=== PATIENT | male | born 1940 | race Caucasian/White ===

== ENCOUNTER 2018-03-03 15:38 | Inpatient (IN) | payer MEDICARE, OTHER, SELFPAY ==
[2018-03-03] VITALS (8 sets, daily range): BP systolic 123–161; BP diastolic 83–93; PULSE 88–122; RESP 16–24; TEMP 36.4–37.1; O2SAT 93–99; BMI 35.3; BMI 33.5
--- NOTE | 2018-03-03 16:11 | CT_ITS ---
STUDY: CT BRAIN WITHOUT CONTRAST REASON FOR EXAM: Male, 77 years old. History of multiple recent falls RADIATION DOSAGE (If Supplied By Facility): CTDIvol = ( ) mGy, DLP = ( ) mGycm TECHNIQUE: Transaxial CT imaging of the brain was performed without administration of intravenous contrast material. Individualized dose optimization techniques were used for this CT. COMPARISON: None. FINDINGS: Normal soft tissue structures. Normal calvarium. There is mild cerebral atrophy with widening of the extra-axial spaces and ventricular dilatation. There are areas of decreased attenuation within the white matter tracts of the supratentorial brain, consistent with microvascular disease changes. Normal basal ganglia and thalami. Normal brainstem. There is mild cerebellar atrophy. There is no intracranial hemorrhage. There are no findings of an acute ischemic infarction. There is mucosal thickening of the inferior left maxillary sinus. CT/Brain/Head without Contrast IMPRESSION: Chronic involutional changes of the brain. Mucosal thickening of the inferior left maxillary sinus. There is no intracranial hemorrhage or evidence of acute infarct. Electronically Signed: Mohan Zafar MD at 17:39 EDT , Service support ,
--- NOTE | 2018-03-03 16:12 | EKG12_ITS ---
Test Reason : FALL Blood Pressure : / mmHG Vent. Rate : 092 BPM Atrial Rate : 104 BPM P-R Int : 000 ms QRS Dur : 088 ms QT Int : 350 ms P-R-T Axes : 000 -11 069 degrees QTc Int : 432 ms Atrial fibrillation Abnormal ECG Confirmed by KEIRY MASON, VIDAL ([id number]), editor continuity and script YULIET FLAHERTY ([id number]) on 03/05/2018 2:30:05 PM Referred By: ALICIA/SNOW Confirmed By:VIDAL RICCI MD
--- NOTE | 2018-03-03 16:13 | RAD_ITS ---
STUDY: X-RAY - PELVIS AND LEFT HIP REASON FOR EXAM: Male, 77 years old. History of multiple falls, confusion TECHNIQUE: Radiological exam, hip, unilateral, with pelvis when performed; 2 or 3 views. COMPARISON: None. FINDINGS: There is a non-specific bowel gas pattern. Normal visualized soft tissue structures. Normal bilateral iliac wings, sacroiliac joints and visualized sacrum. Normal bilateral superior and inferior pubic rami. Normal pubic symphysis. Normal bilateral ischial tuberosities. There is a linear lucency of the base of the lesser trochanter raising the suspicion of nondisplaced hairline fracture. RAD/Hip 2-3 Views with Pelvis IMPRESSION: Linear lucency of the base of the lesser trochanter raising the suspicion of nondisplaced hairline fracture. If clinically indicated, CT the pelvis without contrast would be helpful for further evaluation. Electronically Signed: Mohan Zafar MD at 17:45 EDT , Service support ,
--- NOTE | 2018-03-03 16:13 | CT_ITS ---
STUDY: CT CERVICAL SPINE WITHOUT CONTRAST REASON FOR EXAM: Male, 77 years old. Multiple falls RADIATION DOSAGE (If Supplied By Facility): CTDIvol = ( ) mGy, DLP = ( ) mGycm TECHNIQUE: High resolution transaxial imaging was performed without contrast material. Sagittal and coronal images were reconstructed. Individualized dose optimization techniques were used for this CT. COMPARISON: None FINDINGS: Normal craniovertebral junction. There are degenerative changes of the anterior atlantoaxial articulation. Normal odontoid process. Normal cervical lordosis. There is mild endplate spondylosis of C3-C7. C2-3: Normal endplates. Normal disc height and morphology. Normal central canal and intervertebral neuroforamina. C3-4: There are bilateral hypertrophic degenerative facet changes. There is severe disc space narrowing. There is moderate foraminal narrowing on the left. There is no central canal stenosis. C4-5: There are bilateral degenerative facet changes. There is severe disc space narrowing with sclerosis of the adjacent endplates. There is moderately severe bilateral foraminal narrowing. There is mild central canal stenosis. C5-6: There is severe disc space narrowing. There is severe bilateral foraminal narrowing and mild central canal stenosis. There are bilateral hypertrophic degenerative facet changes. There is a 3 mm anterolisthesis of C6 relative to C5. C6-7: Disc spacing is within normal limits. There are mild bilateral degenerative facet changes. There is no central canal or foraminal stenosis. C7-T1: Normal endplates. Normal disc height and morphology. Normal central canal and intervertebral neuroforamina. Normal visualized soft tissue structures. CT/Spine Cervical without Contras IMPRESSION: Multilevel degenerative changes, as described above. 3 mm anterior subluxation of C6 relative to C5 most likely on a degenerative basis. Electronically Signed: Mohan Zafar MD at 17:34 EDT , Service support ,
--- NOTE | 2018-03-03 16:13 | CT_ITS ---
STUDY: CT FACIAL BONES WITHOUT CONTRAST REASON FOR EXAM: Male, 77 years old. Trauma RADIATION DOSAGE (If Supplied By Facility): CTDIvol = ( ) mGy, DLP = ( 3175.30 ) mGycm TECHNIQUE: The patient was scanned in a multi detector CT scanner. Sagittal and coronal images were reconstructed. Individualized dose optimization techniques were used for this CT. COMPARISON: None. FINDINGS: The study is limited secondary to motion artifact. Normal soft tissue structures. Normal orbital sánchez and orbital contents. Normal nasal bones and anterior nasal spine. Normal facial bones. There is no demonstrated fracture. The remnants of several maxillary bicuspid/incisors appear to be loosened. There are degenerative changes of the TMJs, left side more severely affected than right. There is mild mucosal thickening of the left maxillary sinus. The structures of the nasal cavity appear intact. CT/Sinus/Facial Bone IMPRESSION: There appear to be several loosened carious bicuspids/incisors of the maxilla. There are degenerative changes of the TMJs. Electronically Signed: Mohan Zafar MD at 17:25 EDT , Service support ,
--- NOTE | 2018-03-03 16:13 | CT_ITS ---
STUDY: CT LUMBAR SPINE WITHOUT CONTRAST REASON FOR EXAM: Male, 77 years old. History of multiple falls recently, confusion RADIATION DOSAGE (If Supplied By Facility): CTDIvol = ( ) mGy, DLP = ( 2829.07 ) mGycm TECHNIQUE: The patient was scanned in a multi detector CT scanner. High resolution transaxial imaging was performed. Images were obtained from T11 to sacrum. Sagittal and coronal images were reconstructed. Individualized dose optimization techniques were used for this CT. COMPARISON: None FINDINGS: There is straightening of the normal lumbar lordosis. There is a mild levoscoliosis. The study is limited due to patient obesity scanning artifact and motion artifact. The patient was apparently uncooperative during the study. L1-2: There is moderately severe disc space narrowing with vacuum phenomenon. There is a nondisplaced fracture of the right L1 lamina which is of indeterminate age. There is severe central canal stenosis caused by bulging annulus and hypertrophic facet changes. There is no foraminal narrowing. L2-3: There is loss of the L2-3 disc space. There are bilateral hypertrophic degenerative facet changes and circumferentially bulging annulus. There is severe central canal stenosis. There is mild foraminal narrowing on the right. L3-4: There is moderately severe disc space narrowing. There is a nondisplaced fracture of the left L3 lamina. There is severe central canal stenosis caused by hypertrophic facet changes and bulging annulus. There is mild bilateral foraminal narrowing. L4-5: There are mild bilateral degenerative facet changes. There is severe central canal stenosis caused by bulging annulus and degenerative facet changes. There is moderate foraminal narrowing on the right. There is severe disc space narrowing with vacuum phenomenon. L5-S1: Disc spacing is preserved. There are mild bilateral degenerative facet changes. There is no central canal stenosis or foraminal narrowing. There is right lower lobe atelectasis and/or infiltrate. CT/Spine Lumbar without Contrast IMPRESSION: Degenerative changes as detailed above. Nondisplaced fractures of the right L1 lamina and left L3 lamina, which are of indeterminate age. Electronically Signed: Mohan Zafar MD at 17:14 EDT , Service support ,
--- NOTE | 2018-03-03 16:15 | ED.VISSUMM ---
- ER Visit Summary Date of Service: 03/03/18 Chief Complaint: Fall, confusion History of Present Illness: The patient is a 77 M here with family evaluation of multiple falls and increasing confusion. Initial fall 3 weeks ago facial injury family did not get evaluated. He is on Xarelto. Yesterday had another fall, he was seen at [facility]. Family states was there with his daughter who is currently not here. Reported he signed out AMA. States he was home, had 2 additional falls this morning trying to get out of bed. His unwitnessed. He states he had facial injury. States he is more confused. Denies history of dementia. Patient complains of lower back and left hip pain. Does not ambulate with assistance. At home with his spouse. Past medical history: Coronary disease, CHF, hypertension, hypercholesterolemia, atrial fibrillation. Denies [place] history. Physical Examination: General: Alert and oriented ?3, no acute distress HEENT: Normocephalic, healing ecchymosis around the left eye. No abrasion across the bridge of the nose. No nasal bleeding, no septal hematoma. Moist mucosa membranes Neck: supple, nontender. Cardiovascular: Irregular tachycardic Rate and rhythm, no murmurs Respiratory: Normal breath sounds, symmetric, no distress Back: Left paralumbar tenderness. No midline tenderness Abdomen: Soft, nontender, nondistended Extremities: Nontender, no edema, pulses intact ?4. Negative logroll bilaterally. No shortening or deformities. Neuro: no focal neurological deficits. Test Results: EKG: Rate controlled A. fib, rate of 92, no ST or T-wave changes. CT head neck and face: No fractures, no intracranial process. CT lumbar spine: Nondisplaced right L1 lamina fracture, nondisplaced left L3 lamina fracture. Left hip and pelvis: Linear lunar density lesser trochanteric. Chest x-ray negative. WBC 13.2. Creatinine 1.09. INR 1.5 PTT 29.5. UA pending. Troponin negative. Emergency Department Course and Treatment: Patient no distress, alert and oriented ?3. Patient on Xarelto with recurrent falls with head injuries. Image studies head neck and face shows no intracranial process degenerative changes of the neck. CT lumbar spine no nondisplaced fractures of the lamina at L1 and L3. Hip x-ray notes potential fracture lesser trochanteric, nonweightbearing region. He did not require any pain medications. Labs are stable slight white count 13.2. Urine is pending. Family present concerns with multiple falls will need admission for multiple falls and failure to thrive. I did speak with covering orthopedist, Dr. Braun, fractures are nonsurgical, will follow as a consult inpatient. Patient A. fib is rate controlled on Xarelto. I discussed with hospitalist, Dr. Rogers, who will evaluate for admission. Treatment Plan: [] Disposition: Admission Impression: 1. Multiple falls 2. L1 L3 lumbar fracture 3. Lesser trochanteric fracture closed 4. Failure to thrive 5. Chronic A. fib This note was generated with [employer] dictation software. It may contain incorrect words, spelling, and punctuation that were not noted in review of the chart prior to signing ED Disposition - Plan for ED Patient: Disposition: Acute Care Hospital [facility] Chief Complaint: Fall Diagnosis: Falls, Failure to thrive, L1 and L3 fracture, Closed fracture of lesser trochanter of left femur, Chronic atrial fibrillation Referrals: Jesse Edge MD [Primary Care Provider] -
--- NOTE | 2018-03-03 16:19 | ED.DCSUM_ITS ---
- ER Visit Summary Date of Service: 03/03/18 Chief Complaint: Fall, confusion History of Present Illness: The patient is a 77 M here with family evaluation of multiple falls and increasing confusion. Initial fall 3 weeks ago facial injury family did not get evaluated. He is on Xarelto. Yesterday had another fall, he was seen at [facility]. Family states was there with his daughter who is currently not here. Reported he signed out AMA. States he was home, had 2 additional falls this morning trying to get out of bed. His unwitnessed. He states he had facial injury. States he is more confused. Denies history of dementia. Patient complains of lower back and left hip pain. Does not ambulate with assistance. At home with his spouse. Past medical history: Coronary disease, CHF, hypertension, hypercholesterolemia, atrial fibrillation. Denies [place] history. Physical Examination: General: Alert and oriented ?3, no acute distress HEENT: Normocephalic, healing ecchymosis around the left eye. No abrasion across the bridge of the nose. No nasal bleeding, no septal hematoma. Moist mucosa membranes Neck: supple, nontender. Cardiovascular: Irregular tachycardic Rate and rhythm, no murmurs Respiratory: Normal breath sounds, symmetric, no distress Back: Left paralumbar tenderness. No midline tenderness Abdomen: Soft, nontender, nondistended Extremities: Nontender, no edema, pulses intact ?4. Negative logroll bilaterally. No shortening or deformities. Neuro: no focal neurological deficits. Test Results: EKG: Rate controlled A. fib, rate of 92, no ST or T-wave changes. CT head neck and face: No fractures, no intracranial process. CT lumbar spine : Nondisplaced right L1 lamina fracture, nondisplaced left L3 lamina fracture. Left hip and pelvis: Linear lunar density lesser trochanteric. Chest x-ray negative. WBC 13.2. Creatinine 1.09. INR 1.5 PTT 29.5. UA pending. Troponin negative. Emergency Department Course and Treatment: Patient no distress, alert and oriented ?3. Patient on Xarelto with recurrent falls with head injuries. Image studies head neck and face shows no intracranial process degenerative changes of the neck. CT lumbar spine no nondisplaced fractures of the lamina at L1 and L3. Hip x-ray notes potential fracture lesser trochanteric, nonweightbearing region. He did not require any pain medications. Labs are stable slight white count 13.2. Urine is pending. Family present concerns with multiple falls will need admission for multiple falls and failure to thrive. I did speak with covering orthopedist, Dr. Braun, fractures are nonsurgical, will follow as a consult inpatient. Patient A. fib is rate controlled on Xarelto. I discussed with hospitalist, Dr. Rogers, who will evaluate for admission. Treatment Plan: [] Disposition: Admission Impression: 1. Multiple falls 2. L1 L3 lumbar fracture 3. Lesser trochanteric fracture closed 4. Failure to thrive 5. Chronic A. fib This note was generated with [employer] dictation software. It may contain incorrect words, spelling, and punctuation that were not noted in review of the chart prior to signing ED Disposition - Plan for ED Patient: Disposition: Acute Care Hospital [facility] Chief Complaint: Fall Diagnosis: Falls, Failure to thrive, L1 and L3 fracture, Closed fracture of lesser trochanter of left femur, Chronic atrial fibrillation Referrals: Jesse Edge MD [Primary Care Provider] -
[2018-03-03 16:36] LABS: Hematocrit 34.8 % (40-54); Hemoglobin 11.7 g/dl (13.0-16.5); Mean Corp Hgb Conc 33.6 g/gl (32-36); Mean Corpuscular Volume 92.1 fL (80-94); Monocyte% 6.3 % (0-10); Platelet Count 304 K/mm3 (150-450); RBC Distribution Width CV 13.7 % (11.6-14.6); RBC Distribution Width SD 44.4 fl (35.1-43.9); Red Blood Count 3.78 M/mm3 (4.6-6.2); White Blood Count 13.2 K/mm3 (4.4-11.0)
[2018-03-03 16:37] LABS: Absolute Lymphocyte Count 0.63 X10^3/ul (0.83-4.51); Absolute Neutrophil Count 11.7 X10^3/uL (2.0-7.7); Lymphocyte # 0.63 X10^3/ul (4.0); Lymphocyte % 4.8 % (19-41); Mean Platelet Vol. 9.5 fl (6.2-12.0); Monocyte# 0.84 X10^3/uL; Neutrophil # 11.71 X10^3/uL (2.7-7.7); Neutrophil % 88.5 % (47-70); POSITIVE COUNT NO; POSITIVE DIFFERENTIAL NO; POSITIVE MORPHOLOGY NO
--- NOTE | 2018-03-03 16:37 | RAD_ITS ---
STUDY: X-RAY CHEST REASON FOR EXAM: Male, 77 years old. Confusion, history of multiple falls TECHNIQUE: Single AP portable view of the chest. COMPARISON: None. FINDINGS: site monitor leads are present. The lungs are clear and expanded. There is no demonstrated pleural abnormality. There is borderline cardiomegaly. Status post sternotomy changes are present. Normal mediastinum and gabbie. Normal visualized pulmonary arteries. Normal visualized aortic arch and descending thoracic aorta. Normal visualized thoracic spine. Normal visualized ribs, clavicles, and shoulders. There is no demonstrated abnormality of the visualized soft tissue structures of the upper abdomen. RAD/Chest 1 View (Portable) IMPRESSION: Borderline heart size. Status post sternotomy. No acute cardiopulmonary disease process is seen. Electronically Signed: Mohan Zafar MD at 17:40 EDT , Service support ,
[2018-03-03 16:45] LABS: ALB/GLOB Ratio 1.1 RATIO (0.9-2.4); AST(SGOT) 26 U/L (15-37); Alanine Aminotransfer ALT/SGPT 23 U/L (16-61); Albumin, Serum 3.6 g/dL (3.2-5.0); Alkaline Phosphatase 78 U/L (45-117); Anion Gap 11 (5-15); BUN 32 mg/dL (7-18); BUN/Creat Ratio 29.4 RATIO (10-20); Chloride 104 mmol/L (98-107); Creatinine, Serum 1.09 mg/dL (0.70-1.30); EST Glomerular Filtration Rate 69 mL/min (>60); Est Glom Filt Rate - Afr Amer 84 mL/min (>60); Estimated Creatinine Clearance 49.59 ml/min; Globulin 3.4 g/dL (2.2-4.2); Glucose 205 mg/dL (74-106); Potassium 4.6 mmol/L (3.5-5.1); Sodium Level 138 mmol/L (136-145)
[2018-03-03] MEDS: 0.9% Normal Saline 1,000 ML 150 ML IV (17:22)
[2018-03-03 18:01] LABS: International Normalized Ratio 1.5; Partial Thromboplast Time 29.2 Seconds (24.1-36.2); Prothrombin Time (Protime)PT. 17.7 SECONDS (11.7-14.9)
--- NOTE | 2018-03-03 18:38 | ED.RN ---
pt with yellow bruising noted on left side of face. pt has fallen three times in the last three days. bruising to left hip and back. pt unable to give clean catch at this time, will continue to monitor. pt to be admitted. family at bedside.
--- NOTE | 2018-03-03 18:55 | PCM.HP.STD ---
Problem List (1) Hyperlipidemia Status: Chronic (2) Hypertension Status: Chronic (3) Status post coronary artery bypass graft Status: Chronic (4) Closed fracture of lesser trochanter of left femur Status: Acute (5) Chronic atrial fibrillation Status: Chronic History of Present Illness Date of Admission: 03/03/18 Chief Complaint: Frequent falls, confusion. The patient is a 77 year old M with past medical history as mentioned above presented to the medicine because of fall and confusion. At this time, patient is very frustrated and upset because he is being admitted. Initially, he refused even to speak with me. When I asked him about complaints, he complained of left hip pain. He will not give me any details about that pain. His family were at the bedside and he was very argumentative with them about the admission. Reportedly, patient has been having frequent falls, had a fall 2 weeks ago with facial injury and he did not seek medical attention. He had another fall yesterday and he was seen at the outside facility and reportedly, he signed out AMA from the facility. Today at home, he had 2 falls that was unwitnessed. His daughter mentioned that he has been more confused than usual and forgetful. At this time, he is alert and related ?3. He had a history of CAD status post CABG and he has been on aspirin, statins, beta blockers, losartan. He has a history of chronic atrial fibrillation and he has been on metoprolol for rate control and Xarelto for anticoagulation. He has a history of hypertension which seemed to be under control with Norvasc and metoprolol as well as losartan. In the emergency department, his blood pressure was slightly elevated, other vitals are stable. His routine blood work was remarkable for mild leukocytosis, hemoglobin of 11.7 g/dL, blood sugar is 207 without history of diabetes. His pro time is 17.7 and INR 1.5. EKG revealed atrial suppression, controlled, no acute ischemic changes. Troponin is negative. Chest x-ray showed mild cardiomegaly, no acute findings. CT scan brain showed no acute hemorrhage or infarction. CT scan cervical spine without contrast revealed 3 mm anterior subluxation of C5 and C6 due to degenerative changes, no acute fractures or dislocations. X-ray of the pelvis and left hip revealed questionable hairline lesser trochanter fracture. CT lumbar spine revealed nondisplaced fracture of right L1 lamina and left L3 lamina of indeterminate age. He is being admitted for frequent falls, debility, suspected left lesser trochanter fracture, right L1 lamina and left L3 lamina fracture of indeterminate age. Past Medical History Past Medical History (Chronic Problems): Chronic Problems Hyperlipidemia (Chronic) Hypertension (Chronic) Status post coronary artery bypass graft (Chronic) Coronary artery disease (Chronic) Chronic atrial fibrillation (Chronic) Allergies No Known Allergies Allergy (Verified 03/03/18 15:39) Home Medications: Ambulatory Orders Medication Instructions Recorded Amlodipine Besylate [Norvasc] 5 mg PO DAILY 03/03/18 Aspirin [Aspirin, Baby] 81 mg PO DAILY@0800 03/03/18 Atorvastatin Calcium [Lipitor] 10 mg PO QHS 03/03/18 Cyclobenzaprine [Flexeril] 10 mg PO TID 03/03/18 Duloxetine HCl 30 mg PO DAILY 03/03/18 Furosemide [Lasix] 20 mg PO DAILY 03/03/18 Hydrocodone/Acetaminophen 1 each PO TID PRN PRN 03/03/18 [Hydrocodon-Acetaminophen 5-325] Losartan Potassium 100 mg PO DAILY 03/03/18 Metoprolol Succinate 25 mg PO DAILY 03/03/18 Oxycodone [Oxyir] 5 mg PO Q6H PRN PRN 03/03/18 Rivaroxaban [Xarelto] 20 mg PO DAILY 03/03/18 Surgical History: cholecystectomy, coronary bypass surgery Psychiatric History: No pertinent psych hx Lives: Spouse/ Significant Other Smoking Status: Former smoker Alcohol: None Drugs: None - *Family History Maternal History Items: No pertinent history Paternal History Items: No pertinent history Review of Systems Constitutional: Denies: Anorexia, Chills, Fever, Weakness Eyes: Denies: Blurred vision, Double vision, Drainage, Redness HEENT: Denies: Difficulty Hearing, Ear Pain, Eye Pain, Nasal Congestion, Sore Throat Cardiovascular: Denies: Chest Pain, Chest Pressure, Heaviness, Palpitations, Syncope Respiratory: Denies: Cough, Pleuritic Pain, Shortness of Breath, Sputum production, Wheezing Gastrointestinal: Denies: Abdominal Pain, Diarrhea, Nausea, Vomiting Genitourinary: Denies: Dysuria, Frequency, Hematuria Musculoskeletal: Reports: Joint Pain. Denies: Arm Pain, Back Pain Skin: Denies: Dryness, Rash Neurological: Denies: Balance problems, Double vision, Change in Speech, Numbness Psychiatric: Denies: Anxiety, Depression Endocrine: Denies: Change in Body Habitus, Polydipsia VTE Information - Inpt Only VTE Present on Admission: No VTE Mechan Device Prophylaxis: SCD's VTE Pharm Prophylaxis ordered?: No Patient Problems: Active and Suspected Problems Failure to thrive (Acute) Falls (Acute) Closed fracture of lesser trochanter of left femur (Acute) - Physical Exam General: Alert, Oriented x3, Cooperative, No apparent distress HEENT: PERRLA, EOMI, Normocephalic, - - Head distorted, bruises under left eye and above left eyebrow. Oral: Moist Mucosa, No Gingival or Mucosal Lesions/ Ulcerations Neck: Supple, No JVD, Negative Carotid Bruits, Trachea Midline, Thyroid Normal Size and Texture Lungs: Clear to auscultation, No rhonchi, No wheeze, No rales, Diminished Cardiovascular: Normal S1, Normal S2, No murmurs, PMI Normal, Irregular Rate Abdomen: Bowel Sounds Present, Soft, Non Tender, Non-Distended, No Hepato-splenomegaly Extremities: No clubbing, No cyanosis, Edema - Nonpitting edema. Skin: No rashes, No breakdown Lymphatic: No Cervical, Supraclavicular, or Inguinal Adenopathy Neurological: Cranial nerves II-XII grossly intact, Motor Exam 5/5 strength throughout Psych/Mental Status: Agitated, Anxious Vital Signs Temp Pulse Resp BP Pulse Ox 97.8 F 101 H 24 H 156/92 H 94 03/03/18 15:39 03/03/18 18:08 03/03/18 18:08 03/03/18 18:08 03/03/18 18:08 Oxygen Flow Rate (L/min) 97 Oxygen Delivery Method Room Air Weight: 218 lb 11.177 oz Body Mass Index (BMI) 35.3 Laboratory Tests Past 24 Hrs 03/03/18 03/03/18 03/03/18 15:40 16:08 16:08 WBC 13.2 H RBC 3.78 L Hgb 11.7 L Hct 34.8 L MCV 92.1 MCH 31.0 MCHC 33.6 RDW 13.7 RDW Differential 44.4 H Plt Count 304 MPV 9.5 Immature Gran % (Auto) 0.400 Neut % (Auto) 88.5 H Lymph % (Auto) 4.8 L [place] % (Auto) 6.3 Eos % (Auto) 0.0 Baso % (Auto) 0.0 Absolute Neuts (auto) 11.7 H Absolute Lymphs (auto) 0.63 L Total Counted Not Reportable PT 17.7 H INR 1.5 APTT 29.2 Sodium 138 Potassium 4.6 Chloride 104 Carbon Dioxide 23.0 Anion Gap 11 BUN 32 H Creatinine 1.09 Estim Creat Clear Calc 49.59 Est GFR (MDRD) Af Amer 84 Est GFR (MDRD) Non-Af 69 BUN/Creatinine Ratio 29.4 H Glucose 205 H Calcium 9.0 Total Bilirubin 1.10 H AST 26 ALT 23 Alkaline Phosphatase 78 Troponin I < 0.015 Total Protein 7.0 Albumin 3.6 Globulin 3.4 Albumin/Globulin Ratio 1.1 Clinical Impression(s) from Imaging Studies Brain CT 03/03/18 16:11 IMPRESSION: Chronic involutional changes of the brain. Mucosal thickening of the inferior left maxillary sinus. There is no intracranial hemorrhage or evidence of acute infarct. Electronically Signed: Mohan Zafar MD at 17:39 EDT , Service support , Cervical Spine CT 03/03/18 16:13 IMPRESSION: Multilevel degenerative changes, as described above. 3 mm anterior subluxation of C6 relative to C5 most likely on a degenerative basis. Electronically Signed: Mohan Zafar MD at 17:34 EDT , Service support , Facial/Sinus 03/03/18 16:13 IMPRESSION: There appear to be several loosened carious bicuspids/incisors of the maxilla. There are degenerative changes of the TMJs. Electronically Signed: Mohan Zafar MD at 17:25 EDT , Service support , Hip/Pelvis X-Ray 03/03/18 16:13 IMPRESSION: Linear lucency of the base of the lesser trochanter raising the suspicion of nondisplaced hairline fracture. If clinically indicated, CT the pelvis without contrast would be helpful for further evaluation. Electronically Signed: Mohan Zafar MD at 17:45 EDT , Service support , Lumbar Spine CT 03/03/18 16:13 IMPRESSION: Degenerative changes as detailed above. Nondisplaced fractures of the right L1 lamina and left L3 lamina, which are of indeterminate age. Electronically Signed: Mhoan Zafar MD at 17:14 EDT , Service support , Chest X-Ray 03/03/18 16:37 IMPRESSION: Borderline heart size. Status post sternotomy. No acute cardiopulmonary disease process is seen. Electronically Signed: Mohan Zafar MD at 17:40 EDT , Service support , Assessment/Plan All Active Problems Failure to thrive (Acute) Falls (Acute) Closed fracture of lesser trochanter of left femur (Acute) This is a 77 years old male patient presented to the emergency room because of frequent falls over the last few days, most recent today with recent history of facial injury, found to have suspected hairline fracture of the left lesser trochanter and nondisplaced fractures of right L1 lamina and L3 lamina of indeterminate age. #1 frequent falls/facial injury/functional decline: Patient has been having frequent falls at home, seen at outside facility for the same reason and he signed AMA. Family is very concerned. Patient is very argumentative. His only complaint is mild left hip pain. He has no back pain. He is alert and oriented ?3. Routine blood work was remarkable for mild leukocytosis, otherwise normal. CT scan brain without acute findings. Vital signs are stable. Plan: Admit to MedSur floor, cardiac monitoring, complete bedrest, IV morphine as needed for pain, OxyIR as needed for pain, repeat CBC and BMP tomorrow morning, IV fluids, PT OT evaluation and treatment, case management consult for placement to care home facility. #2 suspected hairline fracture of the left lesser trochanter: X-ray of the pelvis and left hip reviewed. Patient complained of left hip pain. Plan: IV morphine as needed for pain, OxyIR plan for pain, complete bedrest, CT scan left hip. #3 nondisplaced fracture of right L1 and left L3 lamina of indeterminate age: He has no back pain. He mentioned that he has been having this pain intermittently for long time but at this time. No leg focal weakness, numbness and thickening. Plan for pain control, PT OT. #4 CAD status post CABG: Stable, no acute issues. Continue aspirin, statins, losartan and metoprolol. #5 chronic atrial fibrillation: Rate is controlled, continue metoprolol for rate control, hold Xarelto at this time because patient may go for surgery. INR is 1.5. #6 hypertension: Blood pressure stable, continue Norvasc, metoprolol and losartan. #7 hyperlipidemia: Continue statins. #8 DVT prophylaxis: SCDs. Hold Xarelto, patient may go for surgery. INR is 1.5. This note was generated with [employer] dictation software. It may contain incorrect words, spelling, and punctuation that were not noted in checking the note before signing. Code Visit Inpatient E&M: 63984 Init Hosp L3
--- NOTE | 2018-03-03 18:59 | HP.PCM_ITS ---
Problem List (1) Hyperlipidemia Status: Chronic (2) Hypertension Status: Chronic (3) Status post coronary artery bypass graft Status: Chronic (4) Closed fracture of lesser trochanter of left femur Status: Acute (5) Chronic atrial fibrillation Status: Chronic History of Present Illness Date of Admission: 03/03/18 Chief Complaint: Frequent falls, confusion. The patient is a 77 year old M with past medical history as mentioned above presented to the medicine because of fall and confusion. At this time, patient is very frustrated and upset because he is being admitted. Initially, he refused even to speak with me. When I asked him about complaints, he complained of left hip pain. He will not give me any details about that pain. His family were at the bedside and he was very argumentative with them about the admission. Reportedly, patient has been having frequent falls, had a fall 2 weeks ago with facial injury and he did not seek medical attention. He had another fall yesterday and he was seen at the outside facility and reportedly, he signed out AMA from the facility. Today at home, he had 2 falls that was unwitnessed. His daughter mentioned that he has been more confused than usual and forgetful. At this time, he is alert and related ?3. He had a history of CAD status post CABG and he has been on aspirin, statins, beta blockers, losartan. He has a history of chronic atrial fibrillation and he has been on metoprolol for rate control and Xarelto for anticoagulation. He has a history of hypertension which seemed to be under control with Norvasc and metoprolol as well as losartan. In the emergency department, his blood pressure was slightly elevated, other vitals are stable. His routine blood work was remarkable for mild leukocytosis, hemoglobin of 11.7 g/dL, blood sugar is 207 without history of diabetes. His pro time is 17.7 and INR 1.5. EKG revealed atrial suppression , controlled, no acute ischemic changes. Troponin is negative. Chest x-ray showed mild cardiomegaly, no acute findings. CT scan brain showed no acute hemorrhage or infarction. CT scan cervical spine without contrast revealed 3 mm anterior subluxation of C5 and C6 due to degenerative changes, no acute fractures or dislocations. X-ray of the pelvis and left hip revealed questionable hairline lesser trochanter fracture. CT lumbar spine revealed nondisplaced fracture of right L1 lamina and left L3 lamina of indeterminate age. He is being admitted for frequent falls, debility, suspected left lesser trochanter fracture, right L1 lamina and left L3 lamina fracture of indeterminate age. Past Medical History Past Medical History (Chronic Problems): Chronic Problems Hyperlipidemia (Chronic) Hypertension (Chronic) Status post coronary artery bypass graft (Chronic) Coronary artery disease (Chronic) Chronic atrial fibrillation (Chronic) Allergies No Known Allergies Allergy (Verified 03/03/18 15:39) Home Medications: Ambulatory Orders Medication Instructions Recorded Amlodipine Besylate [Norvasc] 5 mg PO DAILY 03/03/18 Aspirin [Aspirin, Baby] 81 mg PO DAILY@0800 03/03/18 Atorvastatin Calcium [Lipitor] 10 mg PO QHS 03/03/18 Cyclobenzaprine [Flexeril] 10 mg PO TID 03/03/18 Duloxetine HCl 30 mg PO DAILY 03/03/18 Furosemide [Lasix] 20 mg PO DAILY 03/03/18 Hydrocodone/Acetaminophen 1 each PO TID PRN PRN 03/03/18 [Hydrocodon-Acetaminophen 5-325] Losartan Potassium 100 mg PO DAILY 03/03/18 Metoprolol Succinate 25 mg PO DAILY 03/03/18 Oxycodone [Oxyir] 5 mg PO Q6H PRN PRN 03/03/18 Rivaroxaban [Xarelto] 20 mg PO DAILY 03/03/18 Surgical History: cholecystectomy, coronary bypass surgery Psychiatric History: No pertinent psych hx Lives: Spouse/ Significant Other Smoking Status: Former smoker Alcohol: None Drugs: None - *Family History Maternal History Items: No pertinent history Paternal History Items: No pertinent history Review of Systems Constitutional: Denies: Anorexia, Chills, Fever, Weakness Eyes: Denies: Blurred vision, Double vision, Drainage, Redness HEENT: Denies: Difficulty Hearing, Ear Pain, Eye Pain, Nasal Congestion, Sore Throat Cardiovascular: Denies: Chest Pain, Chest Pressure, Heaviness, Palpitations, Syncope Respiratory: Denies: Cough, Pleuritic Pain, Shortness of Breath, Sputum production, Wheezing Gastrointestinal: Denies: Abdominal Pain, Diarrhea, Nausea, Vomiting Genitourinary: Denies: Dysuria, Frequency, Hematuria Musculoskeletal: Reports: Joint Pain. Denies: Arm Pain, Back Pain Skin: Denies: Dryness, Rash Neurological: Denies: Balance problems, Double vision, Change in Speech, Numbness Psychiatric: Denies: Anxiety, Depression Endocrine: Denies: Change in Body Habitus, Polydipsia VTE Information - Inpt Only VTE Present on Admission: No VTE Mechan Device Prophylaxis: SCD's VTE Pharm Prophylaxis ordered?: No Patient Problems: Active and Suspected Problems Failure to thrive (Acute) Falls (Acute) Closed fracture of lesser trochanter of left femur (Acute) - Physical Exam General: Alert, Oriented x3, Cooperative, No apparent distress HEENT: PERRLA, EOMI, Normocephalic, - - Head distorted, bruises under left eye and above left eyebrow. Oral: Moist Mucosa, No Gingival or Mucosal Lesions/ Ulcerations Neck: Supple, No JVD, Negative Carotid Bruits, Trachea Midline, Thyroid Normal Size and Texture Lungs: Clear to auscultation, No rhonchi, No wheeze, No rales, Diminished Cardiovascular: Normal S1, Normal S2, No murmurs, PMI Normal, Irregular Rate Abdomen: Bowel Sounds Present, Soft, Non Tender, Non-Distended, No Hepato- splenomegaly Extremities: No clubbing, No cyanosis, Edema - Nonpitting edema. Skin: No rashes, No breakdown Lymphatic: No Cervical, Supraclavicular, or Inguinal Adenopathy Neurological: Cranial nerves II-XII grossly intact, Motor Exam 5/5 strength throughout Psych/Mental Status: Agitated, Anxious Vital Signs Temp Pulse Resp BP Pulse Ox 97.8 F 101 H 24 H 156/92 H 94 03/03/18 15:39 03/03/18 18:08 03/03/18 18:08 03/03/18 18:08 03/03/18 18:08 Oxygen Flow Rate (L/min) 97 Oxygen Delivery Method Room Air Weight: 218 lb 11.177 oz Body Mass Index (BMI) 35.3 Laboratory Tests Past 24 Hrs 03/03/18 03/03/18 03/03/18 15:40 16:08 16:08 WBC 13.2 H RBC 3.78 L Hgb 11.7 L Hct 34.8 L MCV 92.1 MCH 31.0 MCHC 33.6 RDW 13.7 RDW Differential 44.4 H Plt Count 304 MPV 9.5 Immature Gran % (Auto) 0.400 Neut % (Auto) 88.5 H Lymph % (Auto) 4.8 L [place] % (Auto) 6.3 Eos % (Auto) 0.0 Baso % (Auto) 0.0 Absolute Neuts (auto) 11.7 H Absolute Lymphs (auto) 0.63 L Total Counted Not Reportable PT 17.7 H INR 1.5 APTT 29.2 Sodium 138 Potassium 4.6 Chloride 104 Carbon Dioxide 23.0 Anion Gap 11 BUN 32 H Creatinine 1.09 Estim Creat Clear Calc 49.59 Est GFR (MDRD) Af Amer 84 Est GFR (MDRD) Non-Af 69 BUN/Creatinine Ratio 29.4 H Glucose 205 H Calcium 9.0 Total Bilirubin 1.10 H AST 26 ALT 23 Alkaline Phosphatase 78 Troponin I < 0.015 Total Protein 7.0 Albumin 3.6 Globulin 3.4 Albumin/Globulin Ratio 1.1 Clinical Impression(s) from Imaging Studies Brain CT 03/03/18 16:11 IMPRESSION: Chronic involutional changes of the brain. Mucosal thickening of the inferior left maxillary sinus. There is no intracranial hemorrhage or evidence of acute infarct. Electronically Signed: Mohan Zafar MD at 17:39 EDT , Service support , Cervical Spine CT 03/03/18 16:13 IMPRESSION: Multilevel degenerative changes, as described above. 3 mm anterior subluxation of C6 relative to C5 most likely on a degenerative basis. Electronically Signed: Mohan Zafar MD at 17:34 EDT , Service support , Facial/Sinus 03/03/18 16:13 IMPRESSION: There appear to be several loosened carious bicuspids/incisors of the maxilla. There are degenerative changes of the TMJs. Electronically Signed: Mohan Zafar MD at 17:25 EDT , Service support , Hip/Pelvis X-Ray 03/03/18 16:13 IMPRESSION: Linear lucency of the base of the lesser trochanter raising the suspicion of nondisplaced hairline fracture. If clinically indicated, CT the pelvis without contrast would be helpful for further evaluation. Electronically Signed: Mohan Zafar MD at 17:45 EDT , Service support , Lumbar Spine CT 03/03/18 16:13 IMPRESSION: Degenerative changes as detailed above. Nondisplaced fractures of the right L1 lamina and left L3 lamina, which are of indeterminate age. Electronically Signed: Mohan Zafar MD at 17:14 EDT , Service support , Chest X-Ray 03/03/18 16:37 IMPRESSION: Borderline heart size. Status post sternotomy. No acute cardiopulmonary disease process is seen. Electronically Signed: Mohan Zafar MD at 17:40 EDT , Service support , Assessment/Plan All Active Problems Failure to thrive (Acute) Falls (Acute) Closed fracture of lesser trochanter of left femur (Acute) This is a 77 years old male patient presented to the emergency room because of frequent falls over the last few days, most recent today with recent history of facial injury, found to have suspected hairline fracture of the left lesser trochanter and nondisplaced fractures of right L1 lamina and L3 lamina of indeterminate age. #1 frequent falls/facial injury/functional decline: Patient has been having frequent falls at home, seen at outside facility for the same reason and he signed AMA. Family is very concerned. Patient is very argumentative. His only complaint is mild left hip pain. He has no back pain. He is alert and oriented ?3. Routine blood work was remarkable for mild leukocytosis, otherwise normal. CT scan brain without acute findings. Vital signs are stable. Plan: Admit to MedSur floor, cardiac monitoring, complete bedrest, IV morphine as needed for pain, OxyIR as needed for pain, repeat CBC and BMP tomorrow morning, IV fluids, PT OT evaluation and treatment, case management consult for placement to [facility] facility. #2 suspected hairline fracture of the left lesser trochanter: X-ray of the pelvis and left hip reviewed. Patient complained of left hip pain. Plan: IV morphine as needed for pain, OxyIR plan for pain, complete bedrest, CT scan left hip. #3 nondisplaced fracture of right L1 and left L3 lamina of indeterminate age: He has no back pain. He mentioned that he has been having this pain intermittently for long time but at this time. No leg focal weakness, numbness and thickening. Plan for pain control, PT OT. #4 CAD status post CABG: Stable, no acute issues. Continue aspirin, statins, losartan and metoprolol. #5 chronic atrial fibrillation: Rate is controlled, continue metoprolol for rate control, hold Xarelto at this time because patient may go for surgery. INR is 1.5. #6 hypertension: Blood pressure stable, continue Norvasc, metoprolol and losartan. #7 hyperlipidemia: Continue statins. #8 DVT prophylaxis: SCDs. Hold Xarelto, patient may go for surgery. INR is 1.5. This note was generated with [employer] dictation software. It may contain incorrect words, spelling, and punctuation that were not noted in checking the note before signing. Code Visit Inpatient E&M: 90395 Init Hosp L3
--- NOTE | 2018-03-03 19:16 | CT_ITS ---
STUDY: CT PELVIS WITHOUT CONTRAST REASON FOR EXAM: Male, 77 years old. Abnormal left hip x-ray RADIATION DOSAGE (If Supplied By Facility): CTDIvol = ( 40.30 ) mGy, DLP = ( 2899.92 ) mGycm TECHNIQUE: Transaxial imaging of the pelvis was performed with oral contrast, and without intravenous administration of contrast material. Individualized dose optimization techniques were used for this CT. COMPARISON: None. FINDINGS: The study is limited secondary to motion artifact. Normal urinary bladder. Normal visualized small intestine. There are scattered colonic diverticuli with no evidence of associated diverticulitis. There is no pelvic fluid. There is no pelvic mass lesion or lymphadenopathy. The prostate, seminal vesicles, and seminal vesicle angles appear normal. Normal visualized pelvic arteries. Normal abdominal wall. There are degenerative changes of the visualized lower lumbar spine. There is no evidence of fracture of the bony pelvis, left or right hips, or visualized proximal femurs. The left femoral lesser trochanter appears intact. CT/Pelvis without IV Contrast IMPRESSION: Degenerative changes of the visualized lower lumbar spine. There is no evidence of fracture or dislocation. Scattered colonic diverticuli with no evidence of associated diverticulitis. Electronically Signed: Mohan Zafar MD at 21:06 EDT , Service support ,
[2018-03-03] MEDS: LORazepam 2 MG/ML Syringe IV (19:58)
[2018-03-03] MEDS: 0.9% Normal Saline 1,000 ML 75 ML IV (21:19)
[2018-03-04] VITALS (13 sets, daily range): BP systolic 119–134; BP diastolic 60–68; PULSE 85–138; RESP 16–20; TEMP 36.3–36.9; O2SAT 94–97
[2018-03-04] MEDS: Haloperidol Lactate 5 MG/ML Vial 2 MG IV (04:09)
--- NOTE | 2018-03-04 07:39 | NURSING ---
This RN tried to attempt VS this AM. Two attempts were made unsuccessfully to take BP. Pt pulled BP cuff off.
[2018-03-04 07:59] LABS: Absolute Lymphocyte Count 1.95 X10^3/ul (0.83-4.51); Basophil# 0.01 X10^3/uL; Basophil% 0.1 % (0-1); Differential Indicated SCAN CRITERIA MET; Hemoglobin 10.8 g/dl (13.0-16.5); Lymphocyte # 1.95 X10^3/ul (4.0); Lymphocyte % 12.5 % (19-41); Mean Corp Hgb Conc 32.7 g/gl (32-36); Mean Corpuscular Hgb 30.4 pg (27.0-32.0); Monocyte# 0.68 X10^3/uL; Monocyte% 4.3 % (0-10); POSITIVE COUNT NO; POSITIVE DIFFERENTIAL NO; POSITIVE MORPHOLOGY YES; Platelet Count 255 K/mm3 (150-450); RBC Distribution Width CV 14.1 % (11.6-14.6); RBC Distribution Width SD 47.5 fl (35.1-43.9); Red Blood Count 3.55 M/mm3 (4.6-6.2); White Blood Count 15.7 K/mm3 (4.4-11.0)
[2018-03-04 08:00] LABS: Anion Gap 11 (5-15); BUN 29 mg/dL (7-18); BUN/Creat Ratio 34.7 RATIO (10-20); Calcium,Total 8.6 mg/dL (8.5-10.1); Chloride 110 mmol/L (98-107); Creatinine, Serum 0.84 mg/dL (0.70-1.30); EST Glomerular Filtration Rate 94 mL/min (>60); Est Glom Filt Rate - Afr Amer 114 mL/min (>60); Estimated Creatinine Clearance 66.67 ml/min; Glucose 134 mg/dL (74-106); Potassium 4.4 mmol/L (3.5-5.1); Sodium Level 144 mmol/L (136-145)
--- NOTE | 2018-03-04 09:33 | VDLE_ITS ---
Reason For Study: swelling RIGHT LEFT CFV is compressible, spontaneous, phasic, GSV is normal. competent and demonstrates normal CFV is compressible, spontaneous, phasic, augmentation. competent, and demonstrates normal FV is compressible, spontaneous, phasic, augmentation. competent and demonstrates normal FV is compressible, spontaneous, phasic, augmentation. competent and demonstrates normal POP V is compressible, spontaneous, phasic, augmentation. competent and demonstrates normal POP V is compressible, spontaneous, phasic, augmentation. competent and demonstrates normal T/P Trunk is compressible. augmentation. PTV is compressible. T/P Trunk is compressible. RT PerV is compressible. PTV is compressible. GSV appears to be harvested. LT PerV is compressible. Procedure Exam performed portable in patient room. The exam was of fair technical quality due to pt movement. A preliminary report was called and/or faxed to the pt's RN and the Hospitalist. Interpretation Summary No evidence for acute deep venous thrombosis bilateral lower extremities. Surgically removed right great saphenous vein Patent and compressible left great saphenous vein. Ordering Physician: Kemi Hernandes Performed By: Watson Stephen RVT
--- NOTE | 2018-03-04 11:06 | NURSING ---
Patient refusing all AM medications and breakfast.
--- NOTE | 2018-03-04 11:09 | PCM.PN.ORT ---
Patient Problems: Active and Suspected Problems Failure to thrive (Acute) Falls (Acute) Closed fracture of lesser trochanter of left femur (Acute) Subjective: ORTHOPEDIC CONSULT Pt. has had multiple falls over the last several weeks. Is a very poor historian. Reports LBP, but denies significant LLE pain or N/T/P. PMHX, PSHx, ROS, Family Hx, Meds and allergies reviewed per the intake H&P. - Physical Exam General: Alert, Cooperative, No apparent distress Extremities: Edema, Peripheral Pulses Normal, Tenderness - b/l LE with eccchymosis about the Left leg. Able to raise legs without much pian. Logroll negative bilaterally Neurological: Sensory exam intact to light touch and pain Psych/Mental Status: Restless Comment: All imaging studies reviewed Vital Signs Temp Pulse Resp BP Pulse Ox 98.4 F 98 18 134/60 H 94 03/04/18 08:15 03/04/18 11:05 03/04/18 08:15 03/04/18 11:05 03/04/18 08:15 Oxygen Delivery Method Room Air Weight: 214 lb 1.102 oz Body Mass Index (BMI) 33.5 Intake and Output for Last 24 Hours 03/02/18 03/03/18 03/04/18 23:59 23:59 23:59 Intake Total 237 / 237 230 / 230 Output Total 0 / 0 Balance 237 / 237 230 / 230 Laboratory Tests Past 24 Hrs 03/04/18 03/04/18 07:15 07:15 WBC 15.7 H RBC 3.55 L Hgb 10.8 L Hct 33.0 L MCV 93.0 MCH 30.4 MCHC 32.7 RDW 14.1 RDW Differential 47.5 H Plt Count 255 MPV 9.0 Immature Gran % (Auto) 0.100 Neut % (Auto) 83.0 H Lymph % (Auto) 12.5 L [place] % (Auto) 4.3 Eos % (Auto) 0.0 Baso % (Auto) 0.1 Absolute Neuts (auto) 13.0 H Absolute Lymphs (auto) 1.95 Total Counted Not Reportable Sodium 144 Potassium 4.4 Chloride 110 H Carbon Dioxide 23.0 Anion Gap 11 BUN 29 H Creatinine 0.84 Estim Creat Clear Calc 66.67 Est GFR (MDRD) Af Amer 114 Est GFR (MDRD) Non-Af 94 BUN/Creatinine Ratio 34.7 H Glucose 134 H Calcium 8.6 Medical Necessity - Tobacco Use Smoking Status: Former smoker Tobacco Use: Cigars Assessment/Plan All Active Problems Failure to thrive (Acute) Falls (Acute) Closed fracture of lesser trochanter of left femur (Acute) L1 and L3 lamina fxs without neurologic impingement or deficit Left lesser trochanter fx PT with WBAT All Injuries nonsurgical Will follow in office upon discharge
--- NOTE | 2018-03-04 12:18 | PCM.PN.HOSP ---
Patient Problems: Active and Suspected Problems Failure to thrive (Acute) Falls (Acute) Closed fracture of lesser trochanter of left femur (Acute) Subjective: Patient seen and examined. He was admitted yesterday with frequent falls and confusion. He was given 2mg Ativan and a dose of haldol. He denies any pain although his left lower leg is swollen and has posterior bruises. He initially was sleepy in the morning. The nursing staff were concerned about a possible stroke. NIHSS was 7. Patient was alert, oriented x3, oriented to year, season, time. He easily falls back to sleep. I was called back to the room 15 mins later because patient was threatening to sign out AMA. Objective: Physical Exam General: Alert, Oriented x3, Cooperative, No apparent distress HEENT: Bruises under left eye and above left eyebrow. Oral: Moist Mucosa, No Gingival or Mucosal Lesions/ Ulcerations Neck: Supple, No JVD Lungs: Clear to auscultation, No rhonchi, No wheeze, No rales, Diminished Cardiovascular: Normal S1, Normal S2, No murmurs, PMI Normal, Irregular Rate Abdomen: Bruises over his left flank and posterior lumbosacral region, Bowel Sounds Present, Soft, Non Tender, Non-Distended, No Hepato-splenomegaly Extremities: Bilateral leg edema, worse in the left lower leg, +2 pitting edema with posterior skin bruises which appear to be in various stages of healing Skin: No rashes, No breakdown Lymphatic: No Cervical, Supraclavicular, or Inguinal Adenopathy Neurological: Cranial nerves II-XII grossly intact, Motor Exam 5/5 strength throughout Psych/Mental Status: Agitated, Anxious Vitals/I&O's: Vital Signs Temp Pulse Resp BP Pulse Ox 98.4 F 95 18 134/60 H 94 03/04/18 08:15 03/04/18 11:10 03/04/18 08:15 03/04/18 11:05 03/04/18 08:15 Oxygen Delivery Method Room Air Weight: 97.1 kg Body Mass Index (BMI) 33.5 Intake and Output for Last 24 Hours 03/02/18 03/03/18 03/04/18 23:59 23:59 23:59 Intake Total 237 / 237 230 / 230 Output Total 0 / 0 Balance 237 / 237 230 / 230 Laboratory Results 03/04/18 07:15: WBC 15.7 H, RBC 3.55 L, Hgb 10.8 L, Hct 33.0 L, MCV 93.0, MCH 30.4, MCHC 32.7, RDW 14.1, RDW Differential 47.5 H, Plt Count 255, MPV 9.0, Immature Gran % (Auto) 0.100, Neut % (Auto) 83.0 H, Lymph % (Auto) 12.5 L, [place] % (Auto) 4.3, Eos % (Auto) 0.0, Baso % (Auto) 0.1, Absolute Neuts (auto) 13.0 H, Absolute Lymphs (auto) 1.95, Total Counted Not Reportable 03/04/18 07:15: Sodium 144, Potassium 4.4, Chloride 110 H, Carbon Dioxide 23.0, Anion Gap 11, BUN 29 H, Creatinine 0.84, Estim Creat Clear Calc 66.67, Est GFR (MDRD) Af Amer 114, Est GFR (MDRD) Non-Af 94, BUN/Creatinine Ratio 34.7 H, Glucose 134 H, Calcium 8.6 Current Medications Amlodipine Besylate (Norvasc) 5 mg PO DAILY [facility] Last Admin: 03/04/18 11:05 Dose: Not Given Aspirin (Aspirin, Baby) 81 mg PO DAILY@0800 [facility] Last Admin: 03/04/18 11:05 Dose: Not Given Atorvastatin Calcium (Lipitor) 10 mg PO QHS [facility] Last Admin: 03/03/18 23:53 Dose: Not Given Cyclobenzaprine HCl (Flexeril) 10 mg PO TID [facility] Last Admin: 03/04/18 05:17 Dose: Not Given Docusate Sodium (Colace) 100 mg PO BID [facility] Last Admin: 03/04/18 11:05 Dose: Not Given Duloxetine HCl (Cymbalta) 30 mg PO DAILY [facility] Last Admin: 03/04/18 11:05 Dose: Not Given Sodium Chloride () 1,000 mls @ 75 mls/hr IV .[id number] [facility] Last Admin: 03/03/18 21:19 Dose: 75 mls/hr Sodium Chloride () 250 mls @ 15 mls/hr IV .[id number] PRN PRN Reason: SALINE FLUSH Losartan Potassium (Cozaar) 100 mg PO DAILY [facility] Last Admin: 03/04/18 11:05 Dose: Not Given Magnesium Hydroxide (Milk Of Magnesia) 30 ml PO DAILY PRN PRN PRN Reason: Constipation Metoprolol Succinate (Toprol Xl (Beta Lucy)) 25 mg PO DAILY [facility] Last Admin: 03/04/18 11:05 Dose: Not Given Morphine Sulfate () 1 - 2 mg IV Q4H PRN PRN PRN Reason: SEVERE PAIN (6-10/10) Ondansetron HCl (Zofran) 4 mg IV Q6H PRN PRN PRN Reason: NAUSEA/VOMITING Oxycodone HCl (Oxyir) 5 mg PO Q6H PRN PRN PRN Reason: SEVERE PAIN (6-10/10) Sodium Chloride () 5 - 30 ml IV UD PRN PRN Reason: SALINE FLUSH Medical Necessity - Tobacco Use Smoking Status: Former smoker Tobacco Use: Cigars Assessment/Plan All Active Problems Failure to thrive (Acute) Falls (Acute) Closed fracture of lesser trochanter of left femur (Acute) 77 years old male patient who was admitted with recurrent falls, with recent history of facial injury. He lives at home with his . He was found to have suspected hairline fracture of the left lesser trochanter and nondisplaced fractures of right L1 lamina and L3 lamina of indeterminate age. 1. Debility secondary to frequent falls/facial injury/functional decline, reportedly seen at outside facility for the same reason and he signed AMA. Will get PT/OT to evaluate and assist us with treatment and discharge disposition, care management consulted. 2. Bilateral leg edema, worse in left lower extremity, will get doppler ultrasound stat to rule out DVT. 3. Suspected hairline fracture of the left lesser trochanter, seen on x-ray of the hip and pelvis scan, acute fracture ruled out with CT pelvis. Continue with as needed oxycodone and morphine 4. Nondisplaced fracture of right L1 and left L3 lamina of indeterminate age, denies any pain, no focal neurological deficits, orthopedics consulted, conservative management recommended. 5. Suspected delirium with possible cognitive impairment, his says patient is usually stubborn, patient wants to leave AMA, does not appear to have capacity to make medical decisions now. 6. CAD status post CABG, stable, on aspirin, statins, losartan and metoprolol. 7. Chronic atrial fibrillation, rate controlled, on metoprolol, hold Xarelto. 8.Hypertension, stable, continue on Norvasc, metoprolol and losartan. 9. Hyperlipidemia, on statins. 10. DVT prophylaxis- SCDs, Xarelto on hold Code Visit Inpatient E&M: 43045 Subs Hosp L3
[2018-03-04] MEDS: Metoprolol(XL)Succ 25 MG Tablet PO (14:11)
[2018-03-04] MEDS: DULoxetine Hcl 30 MG Capsule PO (14:11)
[2018-03-04] MEDS: Aspirin 81 MG TAB.CHEW PO (14:11)
[2018-03-04] MEDS: Losartan Potassium 100 MG Tablet PO (14:18)
[2018-03-04] MEDS: amLODIPine 5 MG Tablet PO (14:18)
[2018-03-04] MEDS: 0.9% Normal Saline 1,000 ML 75 ML IV (15:29)
[2018-03-04] MEDS: Haloperidol Lactate 5 MG/ML Vial 4 MG IM (22:52)
--- NOTE | 2018-03-04 23:35 | NURSING ---
Around 23:15, RN tried to replace batteries in pt tele. Pt agitated and refusing batteries to be changed.
[2018-03-05] VITALS (15 sets, daily range): BP systolic 114–141; BP diastolic 68–83; PULSE 80–110; RESP 16–32; TEMP 36.3–36.9; O2SAT 93–96
[2018-03-05] MEDS: Haloperidol Lactate 5 MG/ML Vial 2 MG IM (00:33)
--- NOTE | 2018-03-05 01:24 | NURSING ---
Addendum entered by Teresa Sauceda 03/05/18 01:25: Around 23:30 on 03/04* Original Note: Around 23:30, unable to take pt VS or assess NIHSS because pt is exhibiting hostile behavior while being repositioned in bed. Pt has been given IM Haldol. If pt calms down with the Haldol, an attempt will be made to obtain an NIHSS score and vital signs.
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
[2018-03-05 06:32] LABS: Absolute Lymphocyte Count 0.84 X10^3/ul (0.83-4.51); Absolute Neutrophil Count 9.6 X10^3/uL (2.0-7.7); Basophil# 0.01 X10^3/uL; Basophil% 0.1 % (0-1); Eosinophil# 0.01 X10^3/uL; Eosinophils% 0.1 % (0-5); Hematocrit 32.1 % (40-54); Hemoglobin 10.9 g/dl (13.0-16.5); Lymphocyte # 0.84 X10^3/ul (4.0); Lymphocyte % 7.2 % (19-41); Mean Corpuscular Hgb 31.7 pg (27.0-32.0); Mean Corpuscular Volume 93.3 fL (80-94); Monocyte# 1.26 X10^3/uL; Monocyte% 10.7 % (0-10); Neutrophil # 9.56 X10^3/uL (2.7-7.7); Neutrophil % 81.5 % (47-70); Platelet Count 250 K/mm3 (150-450); RBC Distribution Width CV 13.8 % (11.6-14.6); RBC Distribution Width SD 45.4 fl (35.1-43.9); Red Blood Count 3.44 M/mm3 (4.6-6.2); White Blood Count 11.7 K/mm3 (4.4-11.0)
[2018-03-05 06:33] LABS: POSITIVE COUNT NO; POSITIVE DIFFERENTIAL NO; POSITIVE MORPHOLOGY NO
[2018-03-05 07:01] LABS: Anion Gap 8 (5-15); BUN 27 mg/dL (7-18); BUN/Creat Ratio 33.8 RATIO (10-20); Calcium,Total 8.3 mg/dL (8.5-10.1); Chloride 112 mmol/L (98-107); EST Glomerular Filtration Rate 99 mL/min (>60); Est Glom Filt Rate - Afr Amer 120 mL/min (>60); Glucose 124 mg/dL (74-106); Potassium 3.8 mmol/L (3.5-5.1); Sodium Level 143 mmol/L (136-145)
--- NOTE | 2018-03-05 07:40 | NURSING ---
RN attempted to complete NIHSS around 07:15. Pt had 2 doses of Haldol overnight and is now very lethargic. NIHSS unable to be completed at that time.
--- NOTE | 2018-03-05 08:43 | NURSING ---
Unable to perform NIH on patient at this time. Medication given for anxiety on nightshift. Patient drowsy and unable to follow commands.
--- NOTE | 2018-03-05 10:41 | MRI_ITS ---
STUDY: MRI BRAIN WITHOUT CONTRAST REASON FOR EXAM: Male, 77 years old. CONFUSION, COMBATIVE TECHNIQUE: Standardized multiplanar fat and water weighted pulse sequences were obtained. COMPARISON: CT brain March 03, 2018 FINDINGS: There is mild cerebral atrophy with widening of the extra-axial spaces and ventricular dilatation. Normal white matter tracts of the supratentorial brain. There is no evidence for recent intracranial ischemia or other cause of cytotoxic edema on diffusion weighted imaging (DWI). Normal T2* images of the brain without demonstrated susceptibility artifact. There is no demonstrated hemosiderin stain. Normal bilateral basal ganglia. Normal thalami. The extra-axial subdural spaces appear prominent suggesting chronic subdural hygromas with no mass effect and likely related to the degree of volume loss. Normal flow voids within the major intracranial circulation suggesting patency by spin echo criteria. Normal sella turcica, pituitary gland, infundibular stalk, optic chiasm and hypothalamus. Normal tectal plate and pineal gland. Normal midbrain, dary and medulla. Normal cerebellum. Normal basal cisterns. Normal bilateral temporal bones. Normal bilateral internal auditory canals. No demonstrated orbital abnormality, within the constraints of a routine brain study. Normal visualized paranasal sinuses. Normal calvarium and skull base. Normal visualized soft tissue structures. Normal visualized upper cervical spine. MRI/Brain without Contrast IMPRESSION: Involutional changes of the brain, as described above. Electronically Signed: Rachel Chatterjee MD at 14:15 EDT , Service support ,
--- NOTE | 2018-03-05 10:44 | MRI_ITS ---
STUDY: MRA OF THE HEAD WITHOUT CONTRAST REASON FOR EXAM: Male, 77 years old. CONFUSION, COMBATIVE TECHNIQUE: 3-D [id number] (TOF) imaging was performed with MIPs. The study was performed unenhanced. Technologist Notes Patient could not hold still, MEDICATED, STRAPS USED COMPARISON: MRI of the brain March 05, 2018, CT brain March 03, 2018 FINDINGS: Normal bilateral petrous carotid arteries. Normal right cavernous carotid artery with a normal supraclinoid bifurcation. Normal left cavernous carotid artery with a normal supraclinoid bifurcation. Normal right A1 segments of the anterior cerebral artery. Normal left A1 segments of the anterior cerebral artery. There is non-visualization of the anterior communicating artery (ACOM) there is nonvisualization may relate to patient motion. Normal bilateral A2 segments of the anterior cerebral arteries. Normal right M1 and M2 segments of the middle cerebral arteries, with a normal M1 bifurcation. Normal left M1 and M2 segments of the middle cerebral arteries, with a normal M1 bifurcation. There is non-visualization of the right posterior communicating artery (PCOM). There is non-visualization of the left posterior communicating artery (PCOM). The right vertebral artery is visualized, prominent and ectatic. The left vertebral artery is not visualized and may either be occluded or atretic. Normal basilar artery with a normal basilar bifurcation. The visualized bilateral superior cerebellar (SCA) arteries are normal. Normal bilateral P1, P2 and visualized P3 segments of the posterior cerebral arteries. There is no demonstrated aneurysm of the rampart of [place]. There is no major vessel occlusion or hemodynamically significant stenosis. There is no demonstrated abnormality of the visualized brain. MRI/MRA Head ONLY without Contrast IMPRESSION: Limited study due to motion. The left vertebral artery is not visualized which may be secondary to atresia or occlusion. Otherwise no demonstrated major vascular occlusion. See above. Electronically Signed: Rachel Chatterjee MD at 14:20 EDT , Service support ,
--- NOTE | 2018-03-05 10:45 | ECHOCS_ITS ---
Reason For Study: TIA/CVA Procedure This was a 2D Doppler, Color Flow transthoracic echocardiogram. Contrast injection was performed. The study was technically difficult. Exam performed portable in patient room. Left Ventricle Normal size and thickness. The estimated ejection fraction is 50 %. There are regional wall motion abnormalities as specified. Mid-Anterior : Mildly hypokinetic. Mid-anteroseptal : Mildly hypokinetic. Right Ventricle Normal size and thickness. Normal systolic function. Atria The left atrium is severely enlarged. Normal right atrium. Normal atrial septum. Bubble contrast study negative for right to left interatrial shunt. Mitral Valve The mitral valve is structurally normal. No prolapse or stenosis seen. Trivial mitral valve insufficiency. Tricuspid Valve Normal tricuspid valve. Mild (1+) tricuspid valve insufficiency. Right ventricular systolic pressure estimated to be 44 mmHg. Mild pulmonary hypertension. Aortic Valve Trisinus/trileaflet aortic valve. Mild diffuse aortic valve thickening. Mild aortic stenosis. Trivial aortic valve insufficiency. Pulmonic Valve The pulmonic valve is not well visualized. Great Vessels Normal aortic root. Normal arch. Normal inferior vena cava. Inferior vena cava collapse with sniff. Pericardium/Pleural No pericardial effusion. Medication Diluted definity 6ml given slow IV push to enhance endocardial definition. Performed a rapid injection of agitated mix of 9 cc saline and 1cc air to assess for atrial septal defect. MMode/2D Measurements & Calculations LVIDd: 5.7 cm IVSd: 0.84 cm LVOT diam: 2.1 cm LVIDs: 4.4 cm LVPWd: 0.99 cm LVOT area: 3.5 cm2 FS: 23.5 % LAV(MOD-bp): 109.0 ml Aortic Valve Planimetry: 1.7 cm2 LA A4 area: 33.3 cm2 LAV(MOD-bp) Indexed: 52.4 ml/m2 LAV(MOD-sp2): 83.8 ml LAV(MOD-sp4): 120.8 ml RA A4 area: 20.2 cm2 Doppler Measurements & Calculations MV E max amira: 98.3 cm/sec Ao V2 max: 169.0 cm/sec AI max amira: 287.9 cm/sec Ao max P.5 mmHg AI max P.1 mmHg Ao V2 mean: 120.4 cm/sec AI dec slope: 182.7 cm/sec2 Ao mean P.4 mmHg AI P1/2t: 461.5 msec Ao V2 VTI: 27.4 cm LUDWIG(I,D): 1.9 cm2 LUDWIG(V,D): 1.9 cm2 LV V1 max: 90.9 cm/sec SV(LVOT): 52.1 ml TR max amira: 268.1 cm/sec LV V1 max P.4 mmHg TR max P.8 mmHg LV V1 mean P.9 mmHg LV V1 mean: 64.8 cm/sec LV V1 VTI: 14.9 cm Interpretation Summary The estimated ejection fraction is 50 %. There are regional wall motion abnormalities as specified. The left atrium is severely enlarged. Bubble contrast study negative for right to left interatrial shunt. Trivial mitral valve insufficiency. Mild (1+) tricuspid valve insufficiency. Right ventricular systolic pressure estimated to be 44 mmHg. Mild pulmonary hypertension. Trivial aortic valve insufficiency. Mild aortic stenosis. Pt appears to be in atrial fibrillation. The study was technically difficult. There is no comparison study available. Contrast injection was performed. Ordering Physician: Kemi Hernandes Referring Physician: DEVON GARCIA Performed By: Tosin Smith RDCS, RVT
--- NOTE | 2018-03-05 11:30 | CASEMGMT ---
Social Work: Referral for D/C planning. Physician and therapy staff recommending half-way facility for therapy. Will follow with family. TC to patient's to discuss D/C planning. Patient states that they prefer to take patient home verses SNF placement. Patient's states that daughter and grandson also live in the home and can assist as needed. Patient's states that they have a walker, wheelchair, shower chair and bed side commode in the home already. Patient's agreeable to home health. Will follow to assist as needed for D/C planning. Discussed with Dr. Hernandes. Dr. Hernandes states that patient has been agitated and has received Haldol at night. Dr. Hernandes ordered MRI to assess for physiological reason for behaviors. Dr. Hernandes aware that family would like to take patient home at D/C. Will continue to follow. TC from patient's sister Sonya Deleon (Sonya list on face sheet as blocker and cutter contact lens in addition to ). Sonya states that she spoke with patient's who is now considering SNF placement. Per patient's sister and , patient will most likely not be agreeable to SNF placement. Sonya states she will be in this afternoon to speak with patient about short term SNF placement for therapy. Updated Polly Santiago RN CM. Will follow to assist as needed for D/C planning. PLAN: Home with [facility] verses SNF placement. SARAHI Wick
--- NOTE | 2018-03-05 12:45 | PCM.PN.HOSP ---
Patient Problems: Active and Suspected Problems Failure to thrive (Acute) Falls (Acute) Closed fracture of lesser trochanter of left femur (Acute) Subjective: Patient was seen and examined. He has been agitated the whole night wanting to get up and walk even though he is a high fall risk. He has been reportedly hitting at the nurses. At the time of being examined he is asleep, medicated with Haldol last night and started on Seroquel. Discussed with patient's sister and , no formal diagnosis of dementia but has had some problems with memory. Doppler ultrasound of the lower extremities has been negative for acute DVT. Objective: Physical Exam General: Alert, Oriented x3, Cooperative, No apparent distress HEENT: Bruises under left eye and above left eyebrow. Oral: Moist Mucosa, No Gingival or Mucosal Lesions/ Ulcerations Neck: Supple, No JVD Lungs: Clear to auscultation, No rhonchi, No wheeze, No rales, Diminished Cardiovascular: Normal S1, Normal S2, No murmurs, PMI Normal, Irregular Rate Abdomen: Bruises over his left flank and posterior lumbosacral region, Bowel Sounds Present, Soft, Non Tender, Non-Distended, No Hepato-splenomegaly Extremities: Bilateral leg edema, worse in the left lower leg, +2 pitting edema with posterior skin bruises which appear to be in various stages of healing Skin: No rashes, No breakdown Lymphatic: No Cervical, Supraclavicular, or Inguinal Adenopathy Neurological: Cranial nerves II-XII grossly intact, Motor Exam 5/5 strength throughout Psych/Mental Status: Agitated, Anxious Vitals/I&O's: Vital Signs Temp Pulse Resp BP Pulse Ox 97.4 F L 87 16 126/74 H 95 03/05/18 11:55 03/05/18 11:55 03/05/18 11:55 03/05/18 11:55 03/05/18 11:55 Oxygen Delivery Method Room Air Weight: 97.1 kg Body Mass Index (BMI) 33.5 Intake and Output for Last 24 Hours 03/03/18 03/04/18 03/05/18 23:59 23:59 23:59 Intake Total 237 / 237 1438 / 1438 0 / 0 Output Total 0 / 0 250 / 250 150 / 150 Balance 237 / 237 1188 / 1188 -150 / -150 Laboratory Results 03/05/18 06:20: WBC 11.7 H, RBC 3.44 L, Hgb 10.9 L, Hct 32.1 L, MCV 93.3, MCH 31.7, MCHC 34.0, RDW 13.8, RDW Differential 45.4 H, Plt Count 250, MPV 9.0, Immature Gran % (Auto) 0.400, Neut % (Auto) 81.5 H, Lymph % (Auto) 7.2 L, [place] % (Auto) 10.7 H, Eos % (Auto) 0.1, Baso % (Auto) 0.1, Absolute Neuts (auto) 9.6 H, Absolute Lymphs (auto) 0.84, Total Counted Not Reportable 03/05/18 06:20: Sodium 143, Potassium 3.8, Chloride 112 H, Carbon Dioxide 23.0, Anion Gap 8, BUN 27 H, Creatinine 0.80, Estim Creat Clear Calc 70.00, Est GFR (MDRD) Af Amer 120, Est GFR (MDRD) Non-Af 99, BUN/Creatinine Ratio 33.8 H, Glucose 124 H, Calcium 8.3 L Current Medications Acetaminophen (Tylenol) 1,000 mg PO Q8 [facility] Amlodipine Besylate (Norvasc) 5 mg PO DAILY [facility] Last Admin: 03/04/18 14:18 Dose: 5 mg Aspirin (Aspirin, Baby) 81 mg PO DAILY@0800 [facility] Last Admin: 03/04/18 14:11 Dose: 81 mg Atorvastatin Calcium (Lipitor) 10 mg PO QHS [facility] Last Admin: 03/04/18 23:18 Dose: Not Given Docusate Sodium (Colace) 100 mg PO BID [facility] Last Admin: 03/04/18 23:18 Dose: Not Given Duloxetine HCl (Cymbalta) 30 mg PO DAILY [facility] Last Admin: 03/04/18 14:11 Dose: 30 mg Losartan Potassium (Cozaar) 100 mg PO DAILY [facility] Last Admin: 03/04/18 14:18 Dose: 100 mg Magnesium Hydroxide (Milk Of Magnesia) 30 ml PO DAILY PRN PRN PRN Reason: Constipation Melatonin (Melatonin) 3 mg PO QHS [facility] Metoprolol Succinate (Toprol Xl (Beta Lucy)) 25 mg PO DAILY [facility] Last Admin: 03/04/18 14:11 Dose: 25 mg Morphine Sulfate () 1 mg IV Q4H PRN PRN PRN Reason: SEVERE PAIN (6-10/10) Ondansetron HCl (Zofran) 4 mg IV Q6H PRN PRN PRN Reason: NAUSEA/VOMITING Oxycodone HCl (Oxyir) 5 mg PO Q6H PRN PRN PRN Reason: SEVERE PAIN (6-10/10) Quetiapine Fumarate (Seroquel) 25 mg PO QHS [facility] Last Admin: 03/04/18 23:18 Dose: Not Given Sodium Chloride () 5 - 30 ml IV UD PRN PRN Reason: SALINE FLUSH Medical Necessity - Tobacco Use Smoking Status: Former smoker Tobacco Use: Cigars Assessment/Plan All Active Problems Failure to thrive (Acute) Falls (Acute) Closed fracture of lesser trochanter of left femur (Acute) 77 years old male patient who was admitted with recurrent falls, with recent history of facial injury. He lives at home with his . He was found to have suspected hairline fracture of the left lesser trochanter and nondisplaced fractures of right L1 lamina and L3 lamina of indeterminate age. 1. Debility secondary to frequent falls/facial injury/functional decline, reportedly seen at outside facility for the same reason and he signed AMA. Current therapy and Occupational Therapy evaluated and recommended further skilled therapy. Care management consulted. 2. Delirium likely in a patient with possible cognitive impairment at baseline, this appears to be secondary to patient's worsening cognitive status, would rule out acute stroke with MRI, MRA of the head and neck. 3. Bilateral leg edema, worse in left lower extremity, secondary to trauma, Doppler ultrasound negative for acute DVT 4. Left hip pain s/p fall, suspected hairline fracture of the left lesser trochanter, seen on x-ray of the hip and pelvis scan, acute fracture ruled out with CT pelvis. Continue with as needed oxycodone and morphine 5. Nondisplaced fracture of right L1 and left L3 lamina of indeterminate age, denies any pain, no focal neurological deficits, orthopedics consulted, conservative management recommended. 6. CAD status post CABG, stable, on aspirin, statins, losartan and metoprolol. 7. Chronic atrial fibrillation, rate controlled, on metoprolol, hold Xarelto. 8.Hypertension, stable, continue on Norvasc, metoprolol and losartan. 9. Hyperlipidemia, on statins. 10. DVT prophylaxis- SCDs, Xarelto on hold Code Visit Inpatient E&M: 67551 Subs Hosp L3
[2018-03-05] MEDS: LORazepam 2 MG/ML Syringe 0.5 MG IV (12:48)
--- NOTE | 2018-03-05 12:49 | PN_ITS ---
Patient Problems: Active and Suspected Problems Failure to thrive (Acute) Falls (Acute) Closed fracture of lesser trochanter of left femur (Acute) Subjective: Patient was seen and examined. He has been agitated the whole night wanting to get up and walk even though he is a high fall risk. He has been reportedly hitting at the nurses. At the time of being examined he is asleep, medicated with Haldol last night and started on Seroquel. Discussed with patient's sister and , no formal diagnosis of dementia but has had some problems with memory. Doppler ultrasound of the lower extremities has been negative for acute DVT. Objective: Physical Exam General: Alert, Oriented x3, Cooperative, No apparent distress HEENT: Bruises under left eye and above left eyebrow. Oral: Moist Mucosa, No Gingival or Mucosal Lesions/ Ulcerations Neck: Supple, No JVD Lungs: Clear to auscultation, No rhonchi, No wheeze, No rales, Diminished Cardiovascular: Normal S1, Normal S2, No murmurs, PMI Normal, Irregular Rate Abdomen: Bruises over his left flank and posterior lumbosacral region, Bowel Sounds Present, Soft, Non Tender, Non-Distended, No Hepato-splenomegaly Extremities: Bilateral leg edema, worse in the left lower leg, +2 pitting edema with posterior skin bruises which appear to be in various stages of healing Skin: No rashes, No breakdown Lymphatic: No Cervical, Supraclavicular, or Inguinal Adenopathy Neurological: Cranial nerves II-XII grossly intact, Motor Exam 5/5 strength throughout Psych/Mental Status: Agitated, Anxious Vitals/I&O's: Vital Signs Temp Pulse Resp BP Pulse Ox 97.4 F L 87 16 126/74 H 95 03/05/18 11:55 03/05/18 11:55 03/05/18 11:55 03/05/18 11:55 03/05/18 11:55 Oxygen Delivery Method Room Air Weight: 97.1 kg Body Mass Index (BMI) 33.5 Intake and Output for Last 24 Hours 03/03/18 03/04/18 03/05/18 23:59 23:59 23:59 Intake Total 237 / 237 1438 / 1438 0 / 0 Output Total 0 / 0 250 / 250 150 / 150 Balance 237 / 237 1188 / 1188 -150 / -150 Laboratory Results 03/05/18 06:20: WBC 11.7 H, RBC 3.44 L, Hgb 10.9 L, Hct 32.1 L, MCV 93.3, MCH 31.7, MCHC 34.0, RDW 13.8, RDW Differential 45.4 H, Plt Count 250, MPV 9.0, Immature Gran % (Auto) 0.400, Neut % (Auto) 81.5 H, Lymph % (Auto) 7.2 L, [place] % (Auto) 10.7 H, Eos % (Auto) 0.1, Baso % (Auto) 0.1, Absolute Neuts (auto) 9.6 H, Absolute Lymphs (auto) 0.84, Total Counted Not Reportable 03/05/18 06:20: Sodium 143, Potassium 3.8, Chloride 112 H, Carbon Dioxide 23.0, Anion Gap 8, BUN 27 H, Creatinine 0.80, Estim Creat Clear Calc 70.00, Est GFR ( MDRD) Af Amer 120, Est GFR (MDRD) Non-Af 99, BUN/Creatinine Ratio 33.8 H, Glucose 124 H, Calcium 8.3 L Current Medications Acetaminophen (Tylenol) 1,000 mg PO Q8 [facility] Amlodipine Besylate (Norvasc) 5 mg PO DAILY [facility] Last Admin: 03/04/18 14:18 Dose: 5 mg Aspirin (Aspirin, Baby) 81 mg PO DAILY@0800 [facility] Last Admin: 03/04/18 14:11 Dose: 81 mg Atorvastatin Calcium (Lipitor) 10 mg PO QHS [facility] Last Admin: 03/04/18 23:18 Dose: Not Given Docusate Sodium (Colace) 100 mg PO BID [facility] Last Admin: 03/04/18 23:18 Dose: Not Given Duloxetine HCl (Cymbalta) 30 mg PO DAILY [facility] Last Admin: 03/04/18 14:11 Dose: 30 mg Losartan Potassium (Cozaar) 100 mg PO DAILY [facility] Last Admin: 03/04/18 14:18 Dose: 100 mg Magnesium Hydroxide (Milk Of Magnesia) 30 ml PO DAILY PRN PRN PRN Reason: Constipation Melatonin (Melatonin) 3 mg PO QHS [facility] Metoprolol Succinate (Toprol Xl (Beta Lucy)) 25 mg PO DAILY [facility] Last Admin: 03/04/18 14:11 Dose: 25 mg Morphine Sulfate () 1 mg IV Q4H PRN PRN PRN Reason: SEVERE PAIN (6-10/10) Ondansetron HCl (Zofran) 4 mg IV Q6H PRN PRN PRN Reason: NAUSEA/VOMITING Oxycodone HCl (Oxyir) 5 mg PO Q6H PRN PRN PRN Reason: SEVERE PAIN (6-10/10) Quetiapine Fumarate (Seroquel) 25 mg PO QHS [facility] Last Admin: 03/04/18 23:18 Dose: Not Given Sodium Chloride () 5 - 30 ml IV UD PRN PRN Reason: SALINE FLUSH Medical Necessity - Tobacco Use Smoking Status: Former smoker Tobacco Use: Cigars Assessment/Plan All Active Problems Failure to thrive (Acute) Falls (Acute) Closed fracture of lesser trochanter of left femur (Acute) 77 years old male patient who was admitted with recurrent falls, with recent history of facial injury. He lives at home with his . He was found to have suspected hairline fracture of the left lesser trochanter and nondisplaced fractures of right L1 lamina and L3 lamina of indeterminate age. 1. Debility secondary to frequent falls/facial injury/functional decline, reportedly seen at outside facility for the same reason and he signed AMA. Current therapy and Occupational Therapy evaluated and recommended further skilled therapy. Care management consulted. 2. Delirium likely in a patient with possible cognitive impairment at baseline , this appears to be secondary to patient's worsening cognitive status, would rule out acute stroke with MRI, MRA of the head and neck. 3. Bilateral leg edema, worse in left lower extremity, secondary to trauma, Doppler ultrasound negative for acute DVT 4. Left hip pain s/p fall, suspected hairline fracture of the left lesser trochanter, seen on x-ray of the hip and pelvis scan, acute fracture ruled out with CT pelvis. Continue with as needed oxycodone and morphine 5. Nondisplaced fracture of right L1 and left L3 lamina of indeterminate age, denies any pain, no focal neurological deficits, orthopedics consulted, conservative management recommended. 6. CAD status post CABG, stable, on aspirin, statins, losartan and metoprolol. 7. Chronic atrial fibrillation, rate controlled, on metoprolol, hold Xarelto. 8.Hypertension, stable, continue on Norvasc, metoprolol and losartan. 9. Hyperlipidemia, on statins. 10. DVT prophylaxis- SCDs, Xarelto on hold Code Visit Inpatient E&M: 89194 Subs Hosp L3
[2018-03-05] MEDS: 0.9% NaCl Peripheral Flush Adult/Peds IV (12:58)
--- NOTE | 2018-03-05 12:58 | NURSING ---
1247 given iv ativan for mri in mri
--- NOTE | 2018-03-05 14:50 | NURSING ---
Patient has been lethargic and drowsy this shift d/t anxiety medications. Unable to give oral medications this AM and at this time.
--- NOTE | 2018-03-05 15:14 | NURSING ---
Patient unable to get clean cath urine sample. Straight catheterization performed.
--- NOTE | 2018-03-05 15:56 | CASEMGMT ---
Social work: Met with patient's sister, Sonya, in patient's room. Patient asleep and unable to arouse. Sonya states that she will come back tonight to talk to patient about SNF placement. TC from Maranda Guido, patient's granddaughter and person to notify on face sheet. Maranda states that family would not be able to care for patient in the home at this time due to patient needing more care than family can provide. Maranda requesting this SW send referral to [facility] in [place] for continued care. Maranda states that patient's sister will talk to patient about SNF tonight. Will follow as needed to assist with D/C planning. Will continue to follow to assist as needed with D/C planning. PLAN: Tentative discharge planned for SNF pending family discussion with patient. SARAHI Wick
[2018-03-05] MEDS: QUEtiapine 25 MG Tablet PO (22:06)
[2018-03-05] MEDS: Atorvastatin Calcium 10 MG Tablet PO (22:06)
[2018-03-05] MEDS: MELATONIN 3 MG TABLET PO (22:08)
[2018-03-05] MEDS: Acetaminophen 500 MG Tablet 1000 MG PO (22:08)
[2018-03-06] VITALS (7 sets, daily range): BP systolic 100–132; BP diastolic 61–78; PULSE 80–110; RESP 16–18; TEMP 35.9–36.5; O2SAT 93–96
[2018-03-06] MEDS: Acetaminophen 500 MG Tablet 1000 MG PO ×2 (06:26→13:48)
--- NOTE | 2018-03-06 10:30 | CASEMGMT ---
Social Work: Roxi from [facility] evaluated patient on sight today and states that they are able to accept patient when medically ready. TC to patient's granddaughter, Maranda, to let her know that [facility] is able to accept patient when medically ready. Will continue to follow t assist as needed with D/C planning. PLAN: Patient to be discharged to [facility] when medically ready. SARAHI Wick
[2018-03-06] MEDS: Losartan Potassium 100 MG Tablet PO (10:31)
[2018-03-06] MEDS: Metoprolol(XL)Succ 25 MG Tablet PO (10:31)
[2018-03-06] MEDS: Aspirin 81 MG TAB.CHEW PO (10:31)
[2018-03-06] MEDS: amLODIPine 5 MG Tablet PO (10:31)
[2018-03-06] MEDS: DULoxetine Hcl 30 MG Capsule PO (10:31)
--- NOTE | 2018-03-06 11:53 | PCM.TXEXTCAR ---
- Diet 03/03/18 18:46 Diet: Regular Food consistency:: Regular Liquid Consistency:: Regular/Thin - Wound(s) Right Medial Foot Wound Type: Pressure Injury Right Elbow Wound Type: Skin Tear - Therapies Weight Bearing: Weight bearing as tolerated Physical Therapy: Eval and Treat Occupational Therapy: Eval and Treat - Problem/Diagnosis (1) L1 and L3 lamina fractures Status: Acute Comment: believed acute-not sure Current Visit: Yes (2) Hypertension Status: Chronic Current Visit: Yes (3) Coronary artery disease Status: Chronic Current Visit: Yes (4) Falls Status: Acute Current Visit: Yes (5) Closed fracture of lesser trochanter of left femur Status: Acute Current Visit: Yes (6) Chronic atrial fibrillation Status: Chronic Current Visit: Yes - Allergies/Procedures Done in Hospital Allergies/Adverse Reactions: Allergies No Known Allergies Allergy (Verified 03/03/18 15:39) Procedures: None - Type of Care/Length of Stay Estimated LOS: Convalescent Care Less Than 30 days Type of Care Needed: Skilled Rehab Potential: Good Prognosis: Good - Additional Orders/Day of Discharge H&P will serve as current which was dated: 03/03/18 Day of Discharge: 03/06/18 - Follow Up Care Primary Care Physician: Jesse Edge MD [Primary Care Provider] -
--- NOTE | 2018-03-06 12:56 | CASEMGMT ---
Social work: Spoke with Dr. Slade regarding D/C plan. Dr. Gallego plans to D/C patient today and is aware that [facility] is able to accept patient. Spoke with patient in room. Patient agreeable to go to [facility] for therapy today. TC to [facility]. Transportation scheduled by cot for 2:30pm. HENS completed and faxed to SNF. TC to [facility]. Voice mail message left for Roxi regarding D/C planned for 2:30pm. HENS, transfer orders and med list faxed to [facility]. Narcotic prescription faxed to [facility]. TC to patient's granddaughter Maranda. Maranda aware that patient will be discharged to [facility] today by [facility] at 2:30pm. PLAN: Patient to be discharged to [facility] today by [facility] at 2:30pm. SARAHI Wick
--- NOTE | 2018-03-08 18:30 | PCM.DC.SUM ---
Discharge Date and Diagnosis Date of Admission: 03/03/18 Date of Discharge: 03/06/18 - Primary Discharge Diagnosis #1 closed fracture of the lesser trochanter of the left femur #2 L1 and L3 lamina fractures-age indeterminate #3 chronic atrial fibrillation #4 generalized debility due to multiple medical problems #5 coronary artery disease #6 hypertension #7 transient mental status change-etiology unclear - Secondary Discharge Diagnosis Chronic Problems Hyperlipidemia (Chronic) Hypertension (Chronic) Status post coronary artery bypass graft (Chronic) Coronary artery disease (Chronic) Chronic atrial fibrillation (Chronic) Hospital Course and Treatment Operations: None Procedures: None Summary of Care Provided: The patient is a 77 year old M who was seen in the emergency room at [facility] after sustaining multiple falls at home and having some confusion. Patient lives with his family, he had been seen at another hospital the day before after sustaining a fall at home. Evaluation in the emergency room included an EKG which showed the patient to be in atrial fib which was a chronic rhythm for the patient, imaging studies of the head neck and face showed no intracranial process only degenerative changes of the neck. CT of the lumbar spine showed a nondisplaced fracture of the lamina of L1 and L3 age indeterminate. Hip x-ray showed a fracture of the lesser trochanter of the left hip which was nondisplaced. On examination in the emergency room, patient was in no distress and appeared alert and oriented ?3. Labs showed a slight elevation in white blood cell count 13.2. Orthopedic surgery was contacted and agreed to see the patient in consultation in the hospital. Patient was admitted to PCU, seen by orthopedic surgery who did not feel he needed surgical intervention, and the patient was seen by PT and OT. Patient was monitored on telemetry, family felt that they could no longer care for the patient home and requested placement in a [facility] facility for at least short-term. On 03/06/18, patient was seen and examined and felt in stable condition for discharge to an extended care facility. Home Medications: Medications to take at Discharge Amlodipine Besylate [Norvasc] 5 mg PO DAILY 03/03/18 Aspirin [Aspirin, Baby] 81 mg PO DAILY@0800 03/03/18 Atorvastatin Calcium [Lipitor] 10 mg PO QHS 03/03/18 Losartan Potassium 100 mg PO DAILY 03/03/18 Metoprolol Succinate 25 mg PO DAILY 03/03/18 Rivaroxaban [Xarelto] 20 mg PO DAILY 03/03/18 Docusate Sodium [Colace] 100 mg PO BID capsule 03/06/18 Duloxetine Hcl [Cymbalta] 30 mg PO DAILY capsule 03/06/18 Hydrocodone/Acetaminophen [Hydrocodon-Acetaminophen 5-325] 1 ea PO Q6H PRN PRN #30 tab 03/06/18 Following Prescrptions Were Given to Patient: Hydrocodone/Acetaminophen [Hydrocodon-Acetaminophen 5-325] 1 ea PO Q6H PRN PRN #30 tab PRN Reason: Pain Primary Care Physician: Jesse Edge MD [Primary Care Provider] - Disposition: [facility] facility Minutes spent on discharge:: 31 Patient Condition:: Stable Medical Necessity - Tobacco Use Smoking Status: Former smoker Tobacco Use: Cigars Meaningful Use Info Meaningful Use Diagnoses (Choose all that apply): None applicable Code Visit Inpatient E&M: 83966 Disch Hosp
--- NOTE | 2018-03-08 18:40 | DS.PCM_ITS ---
Discharge Date and Diagnosis Date of Admission: 03/03/18 Date of Discharge: 03/06/18 - Primary Discharge Diagnosis #1 closed fracture of the lesser trochanter of the left femur #2 L1 and L3 lamina fractures-age indeterminate #3 chronic atrial fibrillation #4 generalized debility due to multiple medical problems #5 coronary artery disease #6 hypertension #7 transient mental status change-etiology unclear - Secondary Discharge Diagnosis Chronic Problems Hyperlipidemia (Chronic) Hypertension (Chronic) Status post coronary artery bypass graft (Chronic) Coronary artery disease (Chronic) Chronic atrial fibrillation (Chronic) Hospital Course and Treatment Operations: None Procedures: None Summary of Care Provided: The patient is a 77 year old M who was seen in the emergency room at [facility] after sustaining multiple falls at home and having some confusion. Patient lives with his family, he had been seen at another hospital the day before after sustaining a fall at home. Evaluation in the emergency room included an EKG which showed the patient to be in atrial fib which was a chronic rhythm for the patient, imaging studies of the head neck and face showed no intracranial process only degenerative changes of the neck. CT of the lumbar spine showed a nondisplaced fracture of the lamina of L1 and L3 age indeterminate. Hip x-ray showed a fracture of the lesser trochanter of the left hip which was nondisplaced. On examination in the emergency room, patient was in no distress and appeared alert and oriented ?3. Labs showed a slight elevation in white blood cell count 13.2. Orthopedic surgery was contacted and agreed to see the patient in consultation in the hospital. Patient was admitted to PCU, seen by orthopedic surgery who did not feel he needed surgical intervention, and the patient was seen by PT and OT. Patient was monitored on telemetry, family felt that they could no longer care for the patient home and requested placement in a [place] [facility] facility for at least short-term. On , patient was seen and examined and felt in stable condition for discharge to an extended care facility. Home Medications: Medications to take at Discharge Amlodipine Besylate [Norvasc] 5 mg PO DAILY 03/03/18 Aspirin [Aspirin, Baby] 81 mg PO DAILY@0800 03/03/18 Atorvastatin Calcium [Lipitor] 10 mg PO QHS 03/03/18 Losartan Potassium 100 mg PO DAILY 03/03/18 Metoprolol Succinate 25 mg PO DAILY 03/03/18 Rivaroxaban [Xarelto] 20 mg PO DAILY 03/03/18 Docusate Sodium [Colace] 100 mg PO BID capsule 03/06/18 Duloxetine Hcl [Cymbalta] 30 mg PO DAILY capsule 03/06/18 Hydrocodone/Acetaminophen [Hydrocodon-Acetaminophen 5-325] 1 ea PO Q6H PRN PRN # 30 tab 03/06/18 Following Prescrptions Were Given to Patient: Hydrocodone/Acetaminophen [Hydrocodon-Acetaminophen 5-325] 1 ea PO Q6H PRN PRN # 30 tab PRN Reason: Pain Primary Care Physician: Jesse Edge MD [Primary Care Provider] - Disposition: [facility] facility Minutes spent on discharge:: 31 Patient Condition:: Stable Medical Necessity - Tobacco Use Smoking Status: Former smoker Tobacco Use: Cigars Meaningful Use Info Meaningful Use Diagnoses (Choose all that apply): None applicable Code Visit Inpatient E&M: 15389 Disch Hosp
== END 2018-03-06 14:46 | disposition skilled nursing facility (03) | DRG 536 ==
LOC: ED 18:39 → PCU 18:54
PROVIDERS: Internal Medicine; Admitting Provider Hospitalist; Emergency Provider Emergency Medicine; Family Provider Family Medicine; PCP Family Medicine; Visit Provider Internal Medicine
DX: S72.125A Nondisplaced fracture of lesser trochanter of left femur, initial encounter for closed fracture (principal); S32.019A Unspecified fracture of first lumbar vertebra, initial encounter for closed fracture; S32.039A Unspecified fracture of third lumbar vertebra, initial encounter for closed fracture; R53.81 Other malaise; R29.6 Repeated falls; Z95.1 Presence of aortocoronary bypass graft; I25.10 Atherosclerotic heart disease of native coronary artery without angina pectoris; Z79.82 Long term (current) use of aspirin; Z79.899 Other long term (current) drug therapy; I48.2 Chronic atrial fibrillation; Z79.01 Long term (current) use of anticoagulants; I10 Essential (primary) hypertension; E78.5 Hyperlipidemia, unspecified; Z87.891 Personal history of nicotine dependence; R41.82 Altered mental status, unspecified; W19.XXXA Unspecified fall, initial encounter
CPT/HCPCS: 36415; 70450; 70486; 70544; 70551; 71045; 72125; 72131; 72192; 73502; 80048; 80053; 84484; 85025; 85610; 85730; 93005; 93306; 93970; 97161; 97166; 97530; 97802; 99285; J7030; Q9957; A4216; C8929